=== PATIENT | female | born 1985 | race Caucasian/White ===

== ENCOUNTER 2018-04-07 16:16 | Emergency (ER) | payer BC, MEDICAID ==
[~2018-04-07] VITALS: Ht 157.5 cm; Wt 63.1 kg
[2018-04-07 16:18] VITALS: BP 125/81
[2018-04-07] MEDS ORDERED: KETOROLAC 30 MG/1 ML IM PRN (17:00)
[2018-04-07] MEDS ORDERED: KETOROLAC 30 MG/1 ML ONE (17:02)
[2018-04-07 17:34] LABS: CULTURE INDICATED? YES; MICROSCOPIC INDICATED
[2018-04-07 17:35] LABS: HCG UR SG > 1.030 (1.003-1.030)
[2018-04-07] MEDS ORDERED: CEFDINIR 300 MG CAPSULE ONE (17:58)
[2018-04-07] MEDS ORDERED: CEFDINIR 300 MG CAPSULE PO ONE (18:00)
== END 2018-04-07 18:09 | disposition home or self-care (01) ==
LOC: ED 18:07
DX: N10 Acute pyelonephritis (principal); N39.0 Urinary tract infection, site not specified; G89.29 Other chronic pain; R51 Headache
CPT/HCPCS: 81001; 81025; 87077; 87086; 87186; 96372; 99284; J1885

== ENCOUNTER 2019-08-27 06:31 | Emergency (ER) | payer SELFPAY ==
[~2019-08-27] VITALS: Ht 160 cm; Wt 64.7 kg
--- NOTE | 2019-08-27 07:25 | NUR ---
PT PREPED FOR PELVIC EXAM. ERMD BOSCOVICH AT BEDSIDE TO REMOVE TAMPON. TOLERATED WELL.
[2019-08-27 07:26] VITALS: BP 114/61
--- NOTE | 2019-08-27 07:30 | NUR ---
discharge instructions reviewed.
== END 2019-08-27 08:00 | disposition home or self-care (01) ==
LOC: ED 06:50
DX: T19.2XXA Foreign body in vulva and vagina, initial encounter (principal); X58.XXXA Exposure to other specified factors, initial encounter; Y93.89 Activity, other specified; Y92.89 Other specified places as the place of occurrence of the external cause; Y99.8 Other external cause status
CPT/HCPCS: 99284

== ENCOUNTER 2019-10-03 18:51 | Emergency (ER) | payer OTHER ==
[~2019-10-03] VITALS: Ht 160 cm; Wt 61.3 kg
[2019-10-03] MEDS ORDERED: KETOROLAC 30 MG/1 ML IM ONE (19:30)
[2019-10-03] MEDS ORDERED: DEXAMETHASONE 4 MG TABLET PO ONE (19:30)
--- NOTE | 2019-10-03 19:39 | NUR ---
pt up to rr, urine cup provided
[2019-10-03] MEDS ORDERED: KETOROLAC 30 MG/1 ML ONE (19:42)
[2019-10-03] MEDS ORDERED: DEXAMETHASONE 4 MG TABLET ONE (19:42)
--- NOTE | 2019-10-03 19:47 | NUR ---
PT MEDICATED PER MAR, URINE SAMPLE TAKEN TO LAB
[2019-10-03 19:49] LABS: CLUE CELLS NONE SEEN (NONE SEEN); WET PREP WBCS FEW (FEW)
[2019-10-03] MEDS ORDERED: CEFTRIAXONE 250 MG IM ONE ×2 (20:00)
[2019-10-03] MEDS ORDERED: AZITHROMYCIN 500 MG TABLET PO ONE (20:00)
[2019-10-03 20:01] LABS: RAPID INFLUENZA A Negative (Negative); RAPID INFLUENZA B Negative (Negative)
[2019-10-03] MEDS ORDERED: AZITHROMYCIN 250 MG TABLET ONE (20:10)
[2019-10-03] MEDS ORDERED: CEFTRIAXONE 250 MG ONE (20:11)
[2019-10-03 20:15] LABS: CULTURE INDICATED? YES; HCG UR SG 1.026 (1.003-1.030); MICROSCOPIC INDICATED
--- NOTE | 2019-10-03 20:19 | NUR ---
PT MEDICATED PER MAR. DENIES NEEDS, CALL LIGHT WITHIN REACH
[2019-10-03 21:06] VITALS: BP 106/51
== END 2019-10-03 21:15 | disposition home or self-care (01) ==
LOC: ED 19:19
DX: J02.0 Streptococcal pharyngitis (principal); A59.01 Trichomonal vulvovaginitis; R51 Headache; F17.210 Nicotine dependence, cigarettes, uncomplicated; Z90.49 Acquired absence of other specified parts of digestive tract
CPT/HCPCS: 81001; 81025; 87086; 87210; 87400; 87491; 87591; 87808; 87880; 96372; 99284; J0696; J1885